=== PATIENT | female | born 1985 | race Caucasian/White ===

== ENCOUNTER 2024-10-09 00:56 | Inpatient (IN) | payer OTHER ==
[2024-10-09] MEDS ORDERED: ACETAMINOPHEN 325 MG TABLET (FP) ONE (02:10)
[2024-10-09] MEDS ORDERED: CLINDAMYCIN HCL 150 MG CAPSULE (FP) ONE (02:10)
[2024-10-09] MEDS ORDERED: KETOROLAC TROMETHAMINE 30 MG/1 ML VIAL ONE (02:10)
[2024-10-09] MEDS: CLINDAMYCIN HCL 300 MG CAPSULE PO ONE (02:17)
[2024-10-09] MEDS: KETOROLAC TROMETHAMINE 30 MG/1 ML VIAL IM ONE (02:17)
[2024-10-09] MEDS: ACETAMINOPHEN 500 MG TABLET (FP) PO ONE (02:18)
[2024-10-09] MEDS: CLINDAMYCIN 600MG PREMIX IVPB 600 MG/50 ML BAG IVPB ONE (02:53)
[2024-10-09 03:13] LABS: BASO % 0.8 % (0-2.0); EOS % 1.1 % (0-4.5); LYMPH % 25.7 % (8-40); MCH 23.6 pg (25.7-33.7); MCHC 32.1 g/dl (32.0-36.0); MEAN CELL VOLUME 73.7 fl (80-96); MEAN PLT VOLUME 7.6 fl (7.5-11.1); MONO % 5.7 % (3.8-10.2); NEUT % 66.7 % (42.8-82.8); PLATELET COUNT 423 10^3/uL (134-434); RBC 3.39 M/mm3 (3.60-5.2); RDW 17.9 % (11.6-15.6)
[2024-10-09 03:22] LABS: INR 1.18 (0.83-1.09); PROTHROMBIN TIME (PATIENT) 12.9 SEC (9.7-13.0)
[2024-10-09 03:24] LABS: ACTIVATED PTT 30.7 SECONDS (25.2-36.5)
[2024-10-09 03:26] LABS: POTASSIUM 3.9 mmol/L (3.5-5.1)
[2024-10-09 03:29] LABS: ALBUMIN 2.8 g/dl (3.4-5.0); BLOOD UREA NITROGEN 12.8 mg/dL (7-18)
[2024-10-09 03:32] LABS: CREATININE 0.9 mg/dL (0.55-1.3)
[2024-10-09 03:33] LABS: BILIRUBIN,TOTAL 0.2 mg/dL (0.2-1); TOT PROT 7.1 g/dl (6.4-8.2)
[2024-10-09] MEDS ORDERED: VANCOMYCIN 1 GM PREMIX (F) 1 GM/200 ML BAG ONE (04:29)
[2024-10-09] MEDS ORDERED: HYDROmorphone HCL CARPU-JECT 2 MG/1 ML DISP.SYRIN ONE (04:39)
[2024-10-09] MEDS: HYDROmorphone HCl 2 MG/ML VIAL IVPUSH ONE (04:43)
[2024-10-09] MEDS: VANCOMYCIN 1,000 MG in DEXTROSE 5%-WATER - 250 ML IVPB ONE (04:44)
[2024-10-09] MEDS ORDERED: HYDROmorphone HCL CARPU-JECT 2 MG/1 ML DISP.SYRIN IVPUSH PRN (06:05)
[2024-10-09] MEDS ORDERED: ACETAMINOPHEN 1000 MG/100 ML BAG IVPB PRN ×2 (06:05→06:06)
[2024-10-09] MEDS ORDERED: morphine CARPU-JECT 2 MG/1 ML DISP.SYRIN IM PRN (06:07)
[2024-10-09] MEDS ORDERED: MORPHINE SULFATE 2 MG/ML SYRINGE IM PRN (06:10)
[2024-10-09 06:28] LABS: BASO % 0.7 % (0-2.0); EOS % 2.1 % (0-4.5); HEMATOCRIT 25.5 % (32.4-45.2); HEMOGLOBIN 7.9 GM/dL (10.7-15.3); LYMPH % 27.7 % (8-40); MCH 23.5 pg (25.7-33.7); MCHC 31.2 g/dl (32.0-36.0); MEAN CELL VOLUME 75.3 fl (80-96); MEAN PLT VOLUME 7.4 fl (7.5-11.1); MONO % 5.7 % (3.8-10.2); NEUT % 63.8 % (42.8-82.8); PLATELET COUNT 424 10^3/uL (134-434); RBC 3.38 M/mm3 (3.60-5.2); RDW 17.7 % (11.6-15.6); WHITE BLOOD COUNT 9.6 K/mm3 (4.0-10.0)
[2024-10-09 06:49] LABS: POTASSIUM 3.6 mmol/L (3.5-5.1)
[2024-10-09 06:51] LABS: CALCIUM 7.6 mg/dL (8.5-10.1)
[2024-10-09 06:52] LABS: ALBUMIN 2.8 g/dl (3.4-5.0); BLOOD UREA NITROGEN 12.3 mg/dL (7-18); MAGNESIUM 2.3 mg/dL (1.8-2.4)
[2024-10-09 06:55] LABS: PHOSPHOROUS 4.2 mg/dL (2.5-4.9)
[2024-10-09 06:57] LABS: BILIRUBIN,TOTAL 0.5 mg/dL (0.2-1)
[2024-10-09 07:03] LABS: CREATININE 0.8 mg/dL (0.55-1.3)
[2024-10-09 09:23] LABS: RETICULOCYTES 1.51 % (0.5-1.5)
[2024-10-09] MEDS: PANTOPRAZOLE SODIUM 40 MG VIAL IVPUSH SCH (09:49)
[2024-10-09] MEDS ORDERED: VANCOMYCIN HCL 1,500 MG in DEXTROSE 5%-WATER - 250 ML IVPB SCH (10:00)
[2024-10-09] MEDS ORDERED: VANCOMYCIN 1,000 MG in DEXTROSE 5%-WATER - 250 ML IVPB SCH (10:00)
[2024-10-09] MEDS: ONDANSETRON 4 MG/2 ML VIAL IVPUSH ONE (12:35)
[2024-10-09 14:05] VITALS: BMI 40.2
[2024-10-09] MEDS ORDERED: ACETAMINOPHEN INJECTION 100 ML ONE (15:46)
[2024-10-09] MEDS: ACETAMINOPHEN 1000 MG/100 ML BAG IVPB ONE (15:59)
[2024-10-09] MEDS ORDERED: VANCOMYCIN 1 GM PREMIX (F) 1 GM/200 ML BAG IVPB SCH (16:00)
[2024-10-09] MEDS ORDERED: VANCOMYCIN PREMIX 1.5 GM 1,500 MG/300 ML BAG IVPB SCH (16:00)
[2024-10-09] MEDS: KETOROLAC TROMETHAMINE 15 MG/ML VIAL IVPUSH PRN (16:42)
[2024-10-09] MEDS: PIPERACILLIN/TAZOB 3.375 GM 50 ML IVPB SCH (18:04)
[2024-10-09] MEDS: DOXYCYCLINE HYCLATE 100 MG CAPSULE PO SCH (18:05)
[2024-10-09] MEDS: TRIMETHOBENZAMIDE HCL 200MG/2ML INJ IM PRN (20:54)
[2024-10-10 07:46] LABS: BASO % 0.4 % (0-2.0); EOS % 1.3 % (0-4.5); HEMATOCRIT 24.9 % (32.4-45.2); HEMOGLOBIN 7.9 GM/dL (10.7-15.3); LYMPH % 21.4 % (8-40); MCH 23.8 pg (25.7-33.7); MCHC 31.8 g/dl (32.0-36.0); MEAN CELL VOLUME 74.9 fl (80-96); MEAN PLT VOLUME 7.7 fl (7.5-11.1); MONO % 5.9 % (3.8-10.2); PLATELET COUNT 390 10^3/uL (134-434); RBC 3.32 M/mm3 (3.60-5.2); RDW 17.8 % (11.6-15.6)
[2024-10-10 07:59] LABS: POTASSIUM 3.9 mmol/L (3.5-5.1)
[2024-10-10 08:29] LABS: CALCIUM 8.4 mg/dL (8.5-10.1)
[2024-10-10 08:30] LABS: MAGNESIUM 2.2 mg/dL (1.8-2.4)
[2024-10-10 08:33] LABS: ALBUMIN 2.9 g/dl (3.4-5.0); CREATININE 0.9 mg/dL (0.55-1.3)
[2024-10-10 08:34] LABS: TOT PROT 7.1 g/dl (6.4-8.2)
[2024-10-10 08:36] LABS: BILIRUBIN,TOTAL 0.6 mg/dL (0.2-1)
[2024-10-10] MEDS ORDERED: ONDANSETRON 4 MG/2 ML VIAL ONE ×2 (09:27→10:51)
[2024-10-10] MEDS ORDERED: DEXAMETHASONE SOD PHOSPHATE 4 MG/1 ML VIAL ONE (09:27)
[2024-10-10] MEDS ORDERED: KETOROLAC TROMETHAMINE 30 MG/1 ML VIAL ONE (09:27)
[2024-10-10] MEDS ORDERED: LIDOCAINE HCL/PF 2% SDV 5ML VIAL ONE (09:27)
[2024-10-10] MEDS ORDERED: MIDAZOLAM HCL 2 MG/2 ML SINGLE DOSE VIAL ONE (09:27)
[2024-10-10] MEDS ORDERED: oxyCODONE HCL 5 MG TABLET PO PRN ×2 (10:08→12:43)
[2024-10-10] MEDS ORDERED: LACTATED RINGERS SOLUTION 1,000 ML IV SCH ×2 (10:15→12:45)
[2024-10-10] MEDS ORDERED: BUPIVACAINE HCL/PF 0.5% (5MG/ML) 10 ML VIAL ONE (10:18)
[2024-10-10] MEDS ORDERED: LIDOCAINE 1%/EPI 1:100000 (20 ML MULTI DOSE VIAL) ONE (10:18)
[2024-10-10] MEDS ORDERED: LIDOCAINE HCL 1%, 10 MG/ML (20ML VIAL) ONE (10:18)
[2024-10-10] MEDS ORDERED: ACETAMINOPHEN INJECTION 100 ML ONE (10:29)
[2024-10-10] MEDS: cefOXitin SODIUM 1 GM VIAL (RESTRICTED TO ID) IVPB ONE (10:45)
[2024-10-10] MEDS ORDERED: PROPOFOL 20 ML ONE ×2 (10:50→12:21)
[2024-10-10] MEDS ORDERED: ceFAZolin SODIUM 1 GM VIAL ONE (10:50)
[2024-10-10] MEDS ORDERED: CEFOXITIN SODIUM 2 GM IVPB ONE (10:51)
[2024-10-10] MEDS ORDERED: BUPIVACAINE HCL/PF 0.25% (2.5MG/ML) 10 ML VIAL ONE (10:55)
[2024-10-10] MEDS: BUPIVACAINE HCL/PF 0.25% (2.5MG/ML) 10 ML VIAL IJ ONE (10:57)
[2024-10-10] MEDS ORDERED: ONDANSETRON 4 MG/2 ML VIAL IVPUSH PRN (12:43)
[2024-10-10] MEDS: ONDANSETRON 4 MG/2 ML VIAL IVPUSH PRN (13:20)
[2024-10-10] MEDS ORDERED: PROMETHAZINE HCL 25 MG/1 ML VIAL ONE (13:25)
[2024-10-10] MEDS: PROMETHAZINE HCL 25 MG/1 ML VIAL IVPB PRN (13:29)
[2024-10-10] MEDS: ACETAMINOPHEN 1000 MG/100 ML BAG IVPB SCH (14:15)
[2024-10-10] MEDS: LACTATED RINGERS SOLUTION 1,000 ML IV SCH (14:20)
[2024-10-10] MEDS: oxyCODONE HCL 5 MG TABLET PO PRN (16:37)
[2024-10-10] MEDS: PIPERACILLIN/TAZOB 3.375 GM 50 ML IVPB SCH (17:26)
[2024-10-10] MEDS: DOXYCYCLINE HYCLATE 100 MG CAPSULE PO SCH (17:26)
[2024-10-10] MEDS: HYDROmorphone HCL CARPU-JECT 2 MG/1 ML DISP.SYRIN IVPB PRN (18:49)
[2024-10-10] MEDS: KETOROLAC TROMETHAMINE 15 MG/ML VIAL IVPUSH SCH (19:48)
[2024-10-10] MEDS: PANTOPRAZOLE SODIUM 40 MG VIAL IVPUSH SCH (21:36)
[2024-10-11 07:54] LABS: BASO % 0.1 % (0-2.0); HEMOGLOBIN 7.4 GM/dL (10.7-15.3); LYMPH % 13.2 % (8-40); MCH 23.2 pg (25.7-33.7); MCHC 30.8 g/dl (32.0-36.0); MEAN CELL VOLUME 75.4 fl (80-96); MEAN PLT VOLUME 7.7 fl (7.5-11.1); MONO % 4.8 % (3.8-10.2); NEUT % 81.9 % (42.8-82.8); PLATELET COUNT 432 10^3/uL (134-434); RBC 3.18 M/mm3 (3.60-5.2); RDW 17.3 % (11.6-15.6); WHITE BLOOD COUNT 15.7 K/mm3 (4.0-10.0)
[2024-10-11 08:15] LABS: POTASSIUM 3.9 mmol/L (3.5-5.1)
[2024-10-11 08:18] LABS: ALBUMIN 2.9 g/dl (3.4-5.0); CALCIUM 8.5 mg/dL (8.5-10.1); MAGNESIUM 2.1 mg/dL (1.8-2.4)
[2024-10-11 08:19] LABS: BLOOD UREA NITROGEN 11.2 mg/dL (7-18)
[2024-10-11 08:23] LABS: BILIRUBIN,TOTAL 0.6 mg/dL (0.2-1); TOT PROT 7.1 g/dl (6.4-8.2)
[2024-10-11 16:01] LABS: HEMATOCRIT 23.9 % (32.4-45.2); HEMOGLOBIN 7.5 GM/dL (10.7-15.3); MCH 23.2 pg (25.7-33.7); MCHC 31.2 g/dl (32.0-36.0); MEAN CELL VOLUME 74.3 fl (80-96); MEAN PLT VOLUME 7.8 fl (7.5-11.1); PLATELET COUNT 429 10^3/uL (134-434); RBC 3.21 M/mm3 (3.60-5.2); RDW 17.8 % (11.6-15.6)
[2024-10-11] MEDS: ACETAMINOPHEN 325 MG TABLET (FP) PO PRN (18:39)
[2024-10-12] MEDS: oxyCODONE HCL 5 MG TABLET PO PRN (00:50)
[2024-10-12] MEDS: ONDANSETRON 4 MG/2 ML VIAL IVPUSH ONE (04:11)
[2024-10-12 08:29] LABS: BASO % 0.4 % (0-2.0); EOS % 0.7 % (0-4.5); HEMATOCRIT 21.4 % (32.4-45.2); LYMPH % 22.4 % (8-40); MCH 23.6 pg (25.7-33.7); MCHC 31.6 g/dl (32.0-36.0); MEAN CELL VOLUME 74.7 fl (80-96); MEAN PLT VOLUME 7.6 fl (7.5-11.1); MONO % 5.3 % (3.8-10.2); NEUT % 71.2 % (42.8-82.8); PLATELET COUNT 374 10^3/uL (134-434); RBC 2.86 M/mm3 (3.60-5.2); RDW 17.5 % (11.6-15.6); WHITE BLOOD COUNT 11.1 K/mm3 (4.0-10.0)
[2024-10-12 08:49] LABS: HEMOGLOBIN 6.8 GM/dL (10.7-15.3)
[2024-10-12 08:58] LABS: POTASSIUM 3.9 mmol/L (3.5-5.1)
[2024-10-12 09:03] LABS: CALCIUM 8.3 mg/dL (8.5-10.1)
[2024-10-12 09:04] LABS: ALBUMIN 2.9 g/dl (3.4-5.0); BLOOD UREA NITROGEN 13.8 mg/dL (7-18)
[2024-10-12 09:08] LABS: BILIRUBIN,TOTAL 0.4 mg/dL (0.2-1); TOT PROT 6.7 g/dl (6.4-8.2)
[2024-10-12] MEDS: FERROUS SO4 325 MG TABLET (FP) PO SCH (09:14)
[2024-10-12 11:07] LABS: HEMATOCRIT 21.9 % (32.4-45.2); MCH 22.9 pg (25.7-33.7); MCHC 30.8 g/dl (32.0-36.0); MEAN CELL VOLUME 74.3 fl (80-96); MEAN PLT VOLUME 7.7 fl (7.5-11.1); PLATELET COUNT 400 10^3/uL (134-434); RBC 2.95 M/mm3 (3.60-5.2); RDW 18.1 % (11.6-15.6); WHITE BLOOD COUNT 11.6 K/mm3 (4.0-10.0)
[2024-10-12 11:17] LABS: HEMOGLOBIN 6.8 GM/dL (10.7-15.3)
[2024-10-12] MEDS: ONDANSETRON 4 MG/2 ML VIAL IVPUSH PRN (16:37)
[2024-10-12 21:26] LABS: HEMATOCRIT 26.2 % (32.4-45.2); HEMOGLOBIN 8.4 GM/dL (10.7-15.3); MCH 24.2 pg (25.7-33.7); MCHC 32.2 g/dl (32.0-36.0); MEAN PLT VOLUME 7.5 fl (7.5-11.1); PLATELET COUNT 478 10^3/uL (134-434); RDW 18.1 % (11.6-15.6); WHITE BLOOD COUNT 15.5 K/mm3 (4.0-10.0)
[2024-10-12 22:23] VITALS: RESP 18
[2024-10-13 06:46] VITALS: TEMP 98.3
[2024-10-13 08:36] LABS: HEMATOCRIT 25.6 % (32.4-45.2); MCH 23.5 pg (25.7-33.7); MCHC 31.1 g/dl (32.0-36.0); MEAN CELL VOLUME 75.4 fl (80-96); MEAN PLT VOLUME 7.5 fl (7.5-11.1); PLATELET COUNT 444 10^3/uL (134-434); RBC 3.39 M/mm3 (3.60-5.2); RDW 17.8 % (11.6-15.6); WHITE BLOOD COUNT 13.7 K/mm3 (4.0-10.0)
[2024-10-13 09:45] VITALS: BP 120/61; PULSE 70
[2024-10-13] MEDS: IRON SUCROSE INJECTION 200 MG in SODIUM CHLORIDE 90 ML IVPB ONE (13:00)
== END 2024-10-13 13:00 | disposition home or self-care (01) | DRG 572 ==
LOC: JER 00:56 → INTOOBSV 04:18 → JERBED 04:18 → J7W 07:36 → OBSVTOIN 13:13
PROVIDERS: ADMIT Student in an Organized Health Care Education/Training Program; ATTEND Physician Assistant
PROC: 0JB90ZZ Excision of Buttock Subcutaneous Tissue and Fascia, Open Approach (ICD-10-PCS; 2024-10-10)
PROC: 30233N1 Transfusion of Nonautologous Red Blood Cells into Peripheral Vein, Percutaneous Approach (ICD-10-PCS; 2024-10-10)
PROC: 0JB90ZZ Excision of Buttock Subcutaneous Tissue and Fascia, Open Approach (ICD-10-PCS; principal; 2024-10-10 10:30)
DX: L73.2 Hidradenitis suppurativa (principal); D64.9 Anemia, unspecified; E88.09 Other disorders of plasma-protein metabolism, not elsewhere classified; L02.31 Cutaneous abscess of buttock; B95.1 Streptococcus, group B, as the cause of diseases classified elsewhere; D72.829 Elevated white blood cell count, unspecified; D50.9 Iron deficiency anemia, unspecified; R11.0 Nausea
CPT/HCPCS: 36415; 80053; 82728; 83540; 83550; 83735; 84100; 84466; 84703; 85025; 85027; 85045; 85610; 85730; 86850; 86900; 86901; 86922; 87070; 87077; 87205; 88305-TC; 93005; 93010; 94760; 99285-25; G0378; J0131